=== PATIENT | male | born 1995 ===

== ENCOUNTER 2016-03-23 13:54 | Emergency (ER) | payer OTHER ==
--- NOTE | 2016-03-23 15:06 | DX ---
Right Shoulder, 4 Views Clinical Indications: Trauma, right shoulder pain. Comparisons: None. Findings: The humeral head is normally located in the glenoid fossa. No fracture or dislocation. N o evidence of neoplasm, necrosis, or arthritis. No calcifications of soft tissues. Impression: Normal.
--- NOTE | 2016-03-23 15:29 | EDPHY ---
H & P Time Seen by Provider: 03/23/16 15:04 HPI/ROS: CHIEF COMPLAINT: Right shoulder pain HISTORY OF PRESENT ILLNESS: 21-year-old male complaining of acute right shoulder pain after a snowboarding yesterday and re-injured his right shoulder which was injury few weeks ago also while snowboarding. He has been wearing a pre-hospital sling and notes that his pain seems to be resolving slightly. No step-off. No sensory deficits . No head injury. PHYSICAL EXAM (Prior to examination, patient consented to physical exam, hands were washed and my usual and customary physical exam procedures followed) 1) GENERAL: Well-developed, well-nourished, alert and oriented. Appears to be in no acute distress. 2) HEAD: Normocephalic 3) HEENT: sclera anicteric 4) LUNGS: Breathing comfortably. 5) SKIN: intact. No tenting 6) MUSCULOSKELETAL: Patient is wearing an upper extremity sling which is removed. He has normal anatomic landmarks. Crepitus noted. No discoloration. No step-off. Reproducible pain with range of motion. 7) NEUROLOGIC: Bilateral deltoid sensation intact. Neurologic exam normal. Smoking Status: Never smoked Constitutional: Initial Vital Signs Temperature (C) 36.5 C 03/23/16 14:09 Heart Rate 80 03/23/16 14:09 Respiratory Rate 16 03/23/16 14:09 Blood Pressure 155/79 H 03/23/16 14:09 O2 Sat (%) 97 03/23/16 14:09 O2 Delivery Mode Room Air Allergies/Adverse Reactions: No Known Allergies Allergy (Unverified 03/23/16 14:07) Home Medications: Medication Instructions Recorded Ibuprofen [Motrin (*)] 800 mg PO Q6 #15 tab 03/23/16 MDM/Departure - Depart Disposition: Home, Routine, Self-Care Clinical Impression: Sprain of right shoulder Qualifiers: Encounter type: initial encounter Shoulder sprain type: unspecified sprain Qualifier Code: (S43.401A) Unspecified sprain of right shoulder joint, initial encounter Condition: Good Instructions: Shoulder Sprain (ED) Additional Instructions: Return to the ER immediately if you experience discoloration, have worsening pain, numbness, tingling, or any other symptoms that concern you. If you received x-rays in the emergency department today, be advised, that ligamentous , tendon, muscular, and other non-bony injury cannot be fully ruled out. Try to keep your affected extremity elevated above the level of your chest, and keep cold packs on the affected area, for the next 48 hours.Wear the sling as we discussed. Performed range of motion exercises every hour while awake Prescriptions: Ibuprofen [Motrin (*)] 800 mg PO Q6 #15 tab Referrals: Sharath Delatorre MD [Medical Doctor] - 1-2 days without fail
[2016-03-23 15:45] VITALS: BP 132/84; PULSE 84; RESP 18; TEMP 98.8; O2SAT 96
== END 2016-03-23 15:45 | disposition home or self-care (01) ==
DX: S43.401A Unspecified sprain of right shoulder joint, initial encounter (principal); V00.311A Fall from snowboard, initial encounter; Y99.8 Other external cause status; Y93.23 Activity, snow (alpine) (downhill) skiing, snowboarding, sledding, tobogganing and snow tubing